=== PATIENT | male | born 1985 | race African-American/Black ===

== ENCOUNTER 2019-01-31 15:49 | Emergency (ER) | payer MEDICAID, OTHER ==
[~2019-01-31] VITALS: Ht 175.3 cm; Wt 86.2 kg
[~2019-01-31 15:49] MED LIST: ASPIRIN81 M1 PO; CARDIZEM120 MG PO
[2019-01-31] MEDS ORDERED: NKM (15:58)
[2019-01-31 16:05] VITALS: BP 151/101
--- NOTE | 2019-01-31 16:05 | NUR ---
ED Nurse Note: PT walked in to ED due to pain on left mid axillary that radiated to back since this morning. pt denies any injury or trauma. PT VSS, A&Ox4. Denies chest pain or sob
[2019-01-31 17:10] VITALS: BP 145/98
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
[2019-01-31 18:03] LABS: ANION GAP 8 mmol/L (5-15); BLOOD UREA NITROGEN 14 mg/dL (7-18); CALCIUM 9.4 MG/DL (8.5-10.1); CARBON DIOXIDE 30 MMOL/L (21-32); CHLORIDE 100 MMOL/L (98-107); CREATININE 0.9 MG/DL (0.55-1.30); SODIUM 138 MMOL/L (136-145)
[2019-01-31 18:07] LABS: ALANINE AMINOTRANSFERASE 56 U/L (12-78); ALBUMIN 4.4 G/DL (3.4-5.0); ALBUMIN/GLOBULIN RATIO 1.1 (1.0-2.7); ALKALINE PHOSPHATASE 71 U/L (46-116); ASPARTATE AMINO TRANSFERASE 25 U/L (15-37); BASOPHILS % (AUTO) 1.5 % (0.0-2.0); BILIRUBIN,TOTAL 0.3 MG/DL (0.2-1.0); EOSINOPHILS % (AUTO) 0.1 % (0.0-3.0); HEMATOCRIT 43.1 % (42.0-52.0); HEMOGLOBIN 14.9 G/DL (14.2-18.0); LYMPHOCYTES % (AUTO) 31.4 % (20.0-45.0); MEAN CORPUSCULAR VOLUME 90 FL (80-99); MONOCYTES % (AUTO) 5.5 % (1.0-10.0); NEUTROPHILS % (AUTO) 61.4 % (45.0-75.0); PLATELET COUNT 164 K/UL (150-450); RED CELL DISTRIBUTION WIDTH 13.2 % (11.6-14.8); WHITE BLOOD COUNT 4.2 K/UL (4.8-10.8)
[2019-01-31 18:45] VITALS: BP 151/89
--- NOTE | 2019-01-31 18:45 | NUR ---
ER DISCHARGE NOTE: Patient is cleared to be discharged per ERMD, pt is aox4, on room air, with stable vital signs. pt was given dc instructions, pt was able to verbalize understanding, pt id band removed. pt is able to ambulate with steady gait. pt took all belongings. Pt VSS
[2019-01-31 18:49] VITALS: BP 151/89
--- NOTE | 2019-02-01 12:12 | Diagnostic Imaging Report ---
Indication: Dyspnea Comparison: 02/23/2012 A single view chest radiograph was obtained. Findings: Cardiomediastinal appearance is within normal limits for age. The lungs are clear. Pulmonary vascularity is appropriate. The diaphragmatic contour is smooth and costophrenic angles are sharp. No pleural effusions are identified. The bones are unremarkable. Impression: No acute findings
== END 2019-01-31 18:45 | disposition home or self-care (01) ==
LOC: EMR 16:20
DX: R07.89 Other chest pain (principal); I48.91 Unspecified atrial fibrillation; I10 Essential (primary) hypertension
CPT/HCPCS: 36415; 71045; 80053; 83690; 84484; 85025; 93005; 99283

== ENCOUNTER 2019-02-27 15:31 | Emergency (ER) | payer OTHER, BC ==
[~2019-02-27] VITALS: Ht 172.7 cm; Wt 90.7 kg
[~2019-02-27 15:31] MED LIST changes: +NKM
[2019-02-27] MEDS ORDERED: ROBAXIN500 MG PO (16:17)
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
[2019-02-27] MEDS ORDERED: VOLTAREN100 G1 TP (16:18)
[2019-02-27 16:45] VITALS: BP 151/99
[2019-02-27 16:54] VITALS: BP 151/99
== END 2019-02-27 16:50 | disposition home or self-care (01) ==
LOC: EMR 16:50
DX: S16.1XXA Strain of muscle, fascia and tendon at neck level, initial encounter (principal); S39.012A Strain of muscle, fascia and tendon of lower back, initial encounter; I10 Essential (primary) hypertension; V43.52XA Car driver injured in collision with other type car in traffic accident, initial encounter; Y92.410 Unspecified street and highway as the place of occurrence of the external cause
CPT/HCPCS: 99282

== ENCOUNTER 2019-10-24 13:07 | Emergency (ER) | payer MEDICARE, BC ==
[~2019-10-24] VITALS: Ht 175.3 cm; Wt 90.7 kg
[~2019-10-24 13:07] MED LIST changes: +ROBAXIN500 MG PO; +VOLTAREN100 G1 TP
[2019-10-24 13:28] VITALS: BP 134/85
--- NOTE | 2019-10-24 13:30 | Emergency Room Report ---
History of Present Illness General Chief Complaint: Flu Like Symptoms Source: Patient Present Illness HPI 34-year-old male with no significant past medical history complaining of 2 days of generalized body ache, cough and congestion. Denies abdominal pain, nausea vomiting, headache and dizziness. Has not taken medication for symptom relief. Denies chest pain, shortness of breath, palpitation, urinary symptoms, recent travel. Appears to be stable with stable vital signs Allergies: Coded Allergies: No Known Allergies (Unverified , 06/15/12) Patient History Past Medical History: see triage record Past Surgical History: none Pertinent Family History: none Immunizations: UTD Reviewed Nursing Documentation: PMH: Agreed; PSxH: Agreed Nursing Documentation-PMH Past Medical History: No History, Except For Hx Cardiac Problems: Yes - a-fib Hx Hypertension: Yes Review of Systems All Other Systems: negative except mentioned in HPI Physical Exam Vital Signs Date Time Temp Pulse Resp B/P (MAP) Pulse Ox O2 Delivery O2 Flow Rate FiO2 10/24/19 13:14 99.7 110 19 135/82 (99) 95 Room Air Sp02 EP Interpretation: reviewed, normal General Appearance: no apparent distress, alert, GCS 15, non-toxic Head: normocephalic, atraumatic Eyes: bilateral eye normal inspection, bilateral eye PERRL ENT: hearing grossly normal, normal pharynx, no angioedema, normal voice Neck: full range of motion, supple, thyroid normal, no meningismus, no bony tend, supple/symm/no masses Respiratory: chest non-tender, lungs clear, normal breath sounds, no rhonchi, no wheezing, speaking full sentences Cardiovascular #1: regular rate, rhythm, no edema, no murmur Gastrointestinal: non tender, soft, no mass Rectal: deferred Genitourinary: no CVA tenderness Musculoskeletal: back normal, normal range of motion, gait/station normal, non- tender Neurologic: alert, motor strength/tone normal, oriented x3, sensory intact, responsive, speech normal Psychiatric: judgement/insight normal, memory normal, mood/affect normal, no suicidal/homicidal ideation Skin: no rash, palpation normal, normal color, warm/dry Lymphatic: no adenopathy Medical Decision Making PA Attestation All my diagnosis and treatment plans were reviewed ad discussed with my supervising physician Dr. Ritter Diagnostic Impression: Primary Impression: Influenza-like symptoms ER Course 34-year-old male with no significant past medical history complaining of 2 days of generalized body ache, cough and congestion. Denies abdominal pain, nausea vomiting, headache and dizziness. Has not taken medication for symptom relief. Denies chest pain, shortness of breath, palpitation, urinary symptoms, recent travel. Appears to be stable with stable vital signs Ddx considered but are not limited to: strep pharyngitis, URI, tonsillitis, peritonsillar abscess, influenza Vital signs: are WNL, pt. is afebrile H&PE are most consistent with: Influenza-like symptoms ORDERS: Tamiflu, guaifenesin ED INTERVENTIONS: None required at this time. DISCHARGE: At this time pt. is stable for d/c to home. Will provide printed patient care instructions, and any necessary prescriptions. Care plan and follow up instructions have been discussed with the patient prior to discharge. Patient safe medication as directed, follow-up with your primary care provider , if worsening symptoms return to emergency room Last Vital Signs Date Time Temp Pulse Resp B/P (MAP) Pulse Ox O2 Delivery O2 Flow Rate FiO2 10/24/19 13:29 110 19 Room Air 10/24/19 13:28 99.7 134/85 95 Disposition: HOME, SELF-CARE Condition: Stable Scripts Guaifenesin* (GUAIFENESIN*) 100 Mg/5 Ml Liquid 5 ML ORAL Q6H, #120 ML 0 Refills Prov: Kavitha Barraza 10/24/19 Oseltamivir Phosphate (Tamiflu) 75 Mg Capsule 75 MG ORAL TWICE A DAY for 5 Days, #10 CAP Prov: Kavitha Barraza 10/24/19 Patient Instructions: Upper Respiratory Infection, Adult, [id number] Additional Instructions: Take medication as directed, follow-up with your primary care provider, if worsening symptoms return to the emergency room Kavitha Barraza Oct 24, 2019 13:30
[2019-10-24] MEDS ORDERED: TAMIFLU75 MG ORAL (13:31)
[2019-10-24] MEDS ORDERED: GUAIFENESI100 MG/5 M ORAL (13:31)
[2019-10-24 13:35] VITALS: BP 138/84
== END 2019-10-24 13:35 | disposition home or self-care (01) ==
LOC: EMR 13:20
DX: J11.1 Influenza due to unidentified influenza virus with other respiratory manifestations (principal); I10 Essential (primary) hypertension; I48.91 Unspecified atrial fibrillation
CPT/HCPCS: 99282

== ENCOUNTER 2019-10-24 18:58 | Emergency (ER) | payer MEDICARE, BC ==
[~2019-10-24] VITALS: Ht 175.3 cm; Wt 90.7 kg
[~2019-10-24 18:58] MED LIST changes: +GUAIFENESI100 MG/5 M ORAL; +TAMIFLU75 MG ORAL
--- NOTE | 2019-10-24 19:27 | NUR ---
ED Nurse Note: pt presents to ED asking for a worknote for a couple additional days. pt states that he was seen here earlier today for flu like symptoms and given a work note to return to [employer] but does not feel comfortable going back to work tomorrow
[2019-10-24 19:28] VITALS: BP 122/76
--- NOTE | 2019-10-24 19:30 | NUR ---
ED Nurse Note: Pt cleared by health care Provider for discharge. DC instructions and work note were given and explained to pt and verbalized understanding of teachings. All medical deviecs such as ID band removed. Pt is AAO x4, ambulatory and left with all personal belongings.
== END 2019-10-24 19:20 | disposition home or self-care (01) ==
LOC: EMR 19:20
DX: J00 Acute nasopharyngitis [common cold] (principal)
CPT/HCPCS: 99281